=== PATIENT | male | born 1980 | race Caucasian/White ===

== ENCOUNTER 2024-01-06 20:26 | Emergency (ER) | payer OTHER, SELFPAY ==
[2024-01-06 20:35] VITALS: BP 159/97
--- NOTE | 2024-01-06 22:32 | ED.GENMED ---
History of Present Illness
<ALTAF Neumann - Last Filed: 01/06/24 22:47>
General
Chief Complaint: Musculo-Skeletal Complaint
Source: patient
Exam Limitations: none
Time Seen by Provider: 01/06/24 22:08
Nursing documentation reviewed up to this point in time: agreed with
Travel History
Have you had any contact with someone who has COVID-19?: No
Do you have any symptoms of coronavirus? Fever > 100 degrees, chills, cough, shortness of breath, sore throat, loss of taste or smell, muscle aches, or headache?: No
History of Present Illness
History of Present Illness:
43 y/o M presents to ED complaining of left ankle pain and swelling x 5 days. Patient states he woke up in the morning with the pain. He describes the pain as a throbbing pain located around his ankle. The pain is 10/10 with walking and better yet
constant at rest. Patient is unsure when the swelling started but said he noticed it 2 days ago. He states it does not radiate anywhere. Patient has been limping and has been having difficulty walking due to the pain. Patient states he was not able
to sleep the last two nights due to exacerbation of the pain. Patient has been taking Advil for his pain for the past 2 days without relief. Patient is unsure if he injured his ankle during his sleep. He states he may have hit onto the base of the
bed on the board in his sleep but is not sure. He denies numbness, tingling, redness, bleeding, fever, chills, nausea or vomiting.
If applicable-neuro sx onset
Onset of symptoms known: Yes
Date of onset of symptoms: 01/02/24
Review of Systems
<ALTAF Neumann - Last Filed: 01/06/24 22:47>
Review of Systems
Allergies reviewed?: Yes
All Other Systems: ROS reviewed and negative except as documented in HPI and ROS
Constitutional: Reports no symptoms
EENT: Reports no symptoms
Respiratory: Reports no symptoms
Cardiac: Reports no symptoms
ABD/GI: Reports no symptoms
: Reports no symptoms
Musculoskeletal: Reports joint pain and edema
Skin: Reports no symptoms
Neurological: Reports no symptoms
Endocrine: Reports no symptoms
Hematologic/Lymphatic: Reports no symptoms
Psychiatric: Reports no symptoms
Phy Exam
<ALTAF Neumann - Last Filed: 01/06/24 22:47>
General Physical Exam
General Presentation: well appearing
General age: appears stated age
General Skin: warm and dry
General Habitus: normal
General Mental: alert
General Hydration: appears well hydrated
Cardiovascular Exam
Cardiovascular Exam: regular rate/rhythm, no edema, no gallop, no murmur and normal peripheral pulses
Pulmonary Exam
Pulmonary Exam: lungs clear, no respiratory distress, no rales, no crackles and no rhonchi
Gastrointestinal Exam
Gastrointestinal Exam: non tender, soft and non distended
Neurological Exam
Neurological Exam: alert and oriented x3
Musculoskeletal Exam
Musculoskeletal Exam: joint swelling, neuro vasc intact and other (L ankle with mild swelling, no erythema or ecchymosis noted, limited inversion/eversion, limited dorsiflexion and plantarflexion of L ankle, tender to palpation at lateral aspect of
ankle, positive anterior drawer test, negative squeeze test)
Skin Exam
Skin Exam: normal color, warm/dry and no rash
Psychiatric Exam
Psychiatric Exam: normal mood/affect
Course
<ALTAF Neumann - Last Filed: 01/06/24 22:47>
Orders/Labs/Results
Orders:
Orders
01/06/24 20:37
Ankle, left 3 view CR [CR Ankle - Left Min 3 Views ] Urgent
Comment:
Reason For Exam: pain, swelling, denies trauma
01/07/24 00:00
US Periph Venous LOWER Ext LT Urgent
Reason For Exam: leg pain and swelling
Vital Signs
Initial and Last Documented VS:
Initial Vital Signs
Temp Pulse Resp BP Pulse Ox
98.4 F 90 18 159/97 97
01/06/24 20:35 01/06/24 20:35 01/06/24 20:35 01/06/24 20:35 01/06/24 20:35
Last Documented Vital Signs
Temp Pulse Resp BP Pulse Ox
99.7 F 86 20 155/96 96
01/07/24 01:18 01/07/24 01:18 01/07/24 01:18 01/07/24 01:18 01/07/24 01:18
<Kali Torrse DO - Last Filed: 01/07/24 01:27>
Orders/Labs/Results
Orders:
Orders
01/06/24 20:37
Ankle, left 3 view CR [CR Ankle - Left Min 3 Views ] Urgent
Comment:
Reason For Exam: pain, swelling, denies trauma
01/07/24 00:00
US Periph Venous LOWER Ext LT Urgent
Reason For Exam: leg pain and swelling
Vital Signs
Initial and Last Documented VS:
Initial Vital Signs
Temp Pulse Resp BP Pulse Ox
98.4 F 90 18 159/97 97
01/06/24 20:35 01/06/24 20:35 01/06/24 20:35 01/06/24 20:35 01/06/24 20:35
Last Documented Vital Signs
Temp Pulse Resp BP Pulse Ox
99.7 F 86 20 155/96 96
01/07/24 01:18 01/07/24 01:18 01/07/24 01:18 01/07/24 01:18 01/07/24 01:18
<ALTAF Neumann - Last Filed: 01/06/24 22:47>
MDM/Problems Addressed
Differential Diagnosis Includes:
Ankle Sprain
Ankle fracture
Tendinopathy
MDM/Problems Addressed:
43 y/o M presents with ankle pain and swelling x 5 days. Patient has no known trauma. Patient physical exam is significant for mild swelling and tenderness along lateral ankle joint with positive anterior drawer test. Patient XR shows no signs of
fracture. Given patient swelling and difficulty ambulating, patient clinical signs may be significant for a sprain. However patient has no known trauma or mechanism of injury that may have caused sprain. Tendinopathy considered given pain, swelling
and pain that is worse with walking. Will discharge home with conservative treatment. Treat with NSAIDs and CAM boot. Advised patient to elevate leg. Follow up with PCP in 2-3 days if symptoms fail to improve.
<ALTAF Neumann - Last Filed: 01/06/24 22:47>
*Critical Care Note
Total Time (30-74mins, 75-104mins- exclusive of procedures): Not Applicable
<Kali Torres DO - Last Filed: 01/07/24 01:27>
*Radiology
Radiology exam reviewed: radiology read reviewed (Negative for DVT)
*Critical Care Note
Total Time (30-74mins, 75-104mins- exclusive of procedures): Not Applicable
ED Attending Note
<ALTAF Neumann - Last Filed: 01/06/24 22:47>
-
Portions of this chart may have been created with voice recognition software.� Occasional wrong word or��sound alike� substitutions may have occurred due to the inherent limitations of voice recognition software.
<Kali Torres DO - Last Filed: 01/07/24 01:27>
ED Attending Note
Patient seen and examined by attending physician: Yes
I performed the substantive portion of visit, reviewed & personally made and approve the management plan that is documented in note by myself or SIMBA.: Yes
ED Attending Note:
Pleasant 43-year-old male who presents with left ankle pain and swelling for the last 5 days. Patient states that the pain is throbbing and it is located mostly on his lateral ankle. Patient noticed the swelling approximately 2 days after the pain
began. Patient denies any known trauma but states that he might of hit it on the base of the bed. Patient has been limping. Denies any knee pain. Reports no other injury. Patient was seen in conjunction with the PA student. I have reviewed and
agree with the history and treatment plan presented. On my independent physical exam, patient is awake, alert, and oriented x3. Patient's left ankle is slightly swollen without any evidence of trauma. There is no erythema present. X-ray read by
myself is negative. Confirmed by radiology as negative. Plan to get ultrasound.
Discharge Plan
Departure
Patient Disposition: Home (Routine Discharge)
Date of Disposition: 01/07/24
Time of Disposition: :
Patient with high blood pressure during this ER visit?: Yes
Condition: Good
Discharge Problem:
Leg swelling
Instructions: Ankle Sprain (DC), Dependent Edema (DC), BLOOD PRESSURE
Referrals:
Jordy Johnson MD [Family Provider] -
Activity Restrictions/Additional Instructions:
Keep the Ever wrap in place is much as possible.
It was a pleasure meeting you and taking part in your care. We hope for your continued healing and wellness.
Please read discharge instructions in their entirety. However, they are for general education and may not describe your exact diagnosis at discharge. Information on your ER visit and medical conditions were discussed with you along with appropriate
follow up information...
If indicated, please take your medications as instructed and indicated on discharge paperwork.
Please schedule a follow up appointment as directed. Call to schedule an appointment
Please return to the emergency department with ANY change in, persisting, or worsening of symptoms. If any of your symptoms do not improve, or persist, or become more severe within 6-12 hours, please return to the emergency department for further
care.
Please return to the emergency department if you develop a headache, neck pain/stiffness, fever greater than 100.4F, chest pain, shortness of breath, persistent nausea, vomiting, slurred speech, difficulty walking, numbness/tingling, weakness, signs
of infection or any other symptoms that are worrisome to you.
If you have any questions or concerns please do not hesitate to call the Hospital at or E-mail me directly at [email or web address]
Interventions
Interventions:
*Risk Screen - Suicide Last Done: 01/06/24 20:35
*General Assessment Last Done: 01/06/24 20:35
*Neglect/Abuse Screening Last Done: 01/06/24 20:35
*ED COVID-19 Vaccine History Last Done: 01/06/24 20:35
ED-Musculoskeletal Assessment Last Done: 01/06/24 23:17
[2024-01-07 01:18] VITALS: BP 155/96
== END 2024-01-07 01:41 | disposition home or self-care (01) ==
LOC: EMR 20:26
PROVIDERS: EMERGENCY PHYSICIAN Student in an Organized Health Care Education/Training Program; FAMILY PHYSICIAN Family Medicine
DX: R22.42 Localized swelling, mass and lump, left lower limb (principal)
CPT/HCPCS: 99284; 73610; 93971

== ENCOUNTER → 2024-01-30 06:42 | Outpatient (REF) | payer OTHER, SELFPAY | LOC: MRI 06:42 | PROVIDERS: ATTENDING PHYSICIAN Student in an Organized Health Care Education/Training Program; FAMILY PHYSICIAN Family Medicine | DX: M25.572 Pain in left ankle and joints of left foot (principal) | CPT/HCPCS: 73721 ==

== ENCOUNTER → 2024-06-11 08:44 | Outpatient (REF) | payer OTHER, SELFPAY | LOC: RAD 08:44 | PROVIDERS: ATTENDING PHYSICIAN Physician Assistant | DX: E66.01 Morbid (severe) obesity due to excess calories (principal) | CPT/HCPCS: 74246 ==

== ENCOUNTER → 2024-06-24 07:46 | Outpatient (REF) | payer OTHER, SELFPAY | LOC: HWRAD 07:46 | PROVIDERS: FAMILY PHYSICIAN Physician Assistant | DX: E66.01 Morbid (severe) obesity due to excess calories (principal) | CPT/HCPCS: 71046; 76700 ==

== ENCOUNTER 2025-05-13 06:17 | Day surgery (SDC) | payer OTHER, SELFPAY | END 2025-05-13 15:19 | disposition home or self-care (01) | LOC: GI 06:17 | PROVIDERS: ATTENDING PHYSICIAN Internal Medicine Gastroenterology | DX: Z12.11 Encounter for screening for malignant neoplasm of colon (principal); K57.30 Diverticulosis of large intestine without perforation or abscess without bleeding; K64.8 Other hemorrhoids; D12.2 Benign neoplasm of ascending colon; K63.5 Polyp of colon | CPT/HCPCS: 45380; 88305 ==